=== PATIENT | female | born 1930 | race Caucasian/White ===

== ENCOUNTER 2017-08-24 13:45 | Outpatient (CLI) | payer MEDICARE, OTHER | END 2017-08-24 13:46 | disposition home or self-care (01) | LOC: BICCT 13:45 | PROVIDERS: ATTEND Family Medicine | DX: M47.892 Other spondylosis, cervical region (principal); M54.2 Cervicalgia; M81.0 Age-related osteoporosis without current pathological fracture; J92.9 Pleural plaque without asbestos; M48.02 Spinal stenosis, cervical region | CPT/HCPCS: 72125 ==

== ENCOUNTER 2018-01-18 09:43 | Outpatient (CLI) | payer MEDICARE, OTHER | END 2018-01-18 09:44 | disposition home or self-care (01) | LOC: BICRAD 09:43 | PROVIDERS: ATTEND Family Medicine | DX: R09.89 Other specified symptoms and signs involving the circulatory and respiratory systems (principal); J44.9 Chronic obstructive pulmonary disease, unspecified | CPT/HCPCS: 71046 ==

== ENCOUNTER 2018-10-05 09:29 | Outpatient (CLI) | payer MEDICARE, OTHER ==
--- NOTE | 2018-10-05 10:51 | BD ---
DEXA BONE DENSITY STUDY: History: Post-menopausal. 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 POS: [facility]
== END 2018-10-05 09:30 | disposition home or self-care (01) ==
LOC: BICMAMMO 09:29
PROVIDERS: ATTEND Family Medicine
DX: M81.0 Age-related osteoporosis without current pathological fracture (principal); M85.88 Other specified disorders of bone density and structure, other site
CPT/HCPCS: 77080

== ENCOUNTER 2018-12-23 15:16 | Outpatient (CLI) | payer MEDICARE, OTHER ==
--- NOTE | 2018-12-23 15:30 | RAD ---
FEXAM:Chest 2 views HISTORY: Left-sided pain. Findings: Heart size upper limits of normal with mitral annulus calcification. There are atherosclero tic changes of the aorta. The lungs show chronic change. The bones appear demineralized. There are ar thritic changes of the spine. IMPRESSION:Borderline heart size. No active intrathoracic disease.
== END 2018-12-23 15:17 | disposition home or self-care (01) ==
LOC: BICRAD 15:16
PROVIDERS: ATTEND Family Medicine
DX: R10.9 Unspecified abdominal pain (principal)
CPT/HCPCS: 36415; 71046; 80053; 81001; 85025

== ENCOUNTER 2018-12-28 08:31 | Outpatient (CLI) | payer MEDICARE, OTHER ==
--- NOTE | 2018-12-28 09:50 | CT ---
CT Chest W Con History: [Chest pain] Comparison: Radiograph December 23, 2018 Findings: The lungs are hyperinflated with mild centrilobular emphysema. No pneumothorax. No effusion . No focal airspace consolidation. No large suspicious pulmonary nodule. There is focal fatty eventra tion of the posterior diaphragm on the right. Large sliding hiatal hernia with approximately 30% matthew georges volume within the thoracic cavity. Mild scarring left lung base. There is a subtle focus of groundglass along the bronchus within the posterior segment right upper lo be axial image 20. The thyroid appears unremarkable aside from a small right lobe hypodensity. No aneurysmal dilatation of the aorta. Limited evaluation of the upper abdomen is unremarkable. Superior endplate compression deformities are present lower thoracic spine from T8 to T10 with endpla te invagination of disc material. No acute displaced rib fracture. Impression: 1. Mild lung hyperinflation and centrilobular emphysema. 2. Large sliding hiatal hernia with 30% of the gastric volume within the thoracic cavity. 3. Focal area of alveolitis within the posterior segment right upper lobe.
[2018-12-28] MEDS ORDERED: Iopamidol 370 76% 50 ML VIAL FS ONE (16:49)
--- NOTE | 2018-12-30 12:15 | CT ---
Exam: CT chest with contrast CT abdomen with contrast History: Chest pain Comparison: Radiograph December 23, 2018 Findings: The lungs are hyperinflated with mild centrilobular emphysema. No pneumothorax. No effusion . No focal airspace consolidation. No large suspicious pulmonary nodule. There is focal fatty eventration of the posterior diaphragm on the right. Large sliding hiatal hernia with approximately 3 0% gastric volume within the thoracic cavity. Mild scarring left lung base. There is a subtle focus of groundglass along the bronchus within the posterior segment right upper lo be axial image 20. The thyroid appears unremarkable aside from a small right lobe hypodensity. No aneurysmal dilatation of the aorta. Limited evaluation of the upper abdomen is unremarkable. Superior endplate compression deformities are present lower thoracic spine from T8 to T10 with endpla te invagination of disc material. No acute displaced rib fracture. Impression: 1. Mild lung hyperinflation and centrilobular emphysema. 2. Large sliding hiatal hernia with 30% of the gastric volume within the thoracic cavity. 3. Focal area of alveolitis within the posterior segment right upper lobe. Transcribed Date/Time: 12/30/2018 12:14 PM
== END 2018-12-28 08:32 | disposition home or self-care (01) ==
LOC: CT 08:31
PROVIDERS: ATTEND Family Medicine
DX: R10.9 Unspecified abdominal pain (principal); R09.89 Other specified symptoms and signs involving the circulatory and respiratory systems; J43.2 Centrilobular emphysema; K44.9 Diaphragmatic hernia without obstruction or gangrene; J67.9 Hypersensitivity pneumonitis due to unspecified organic dust
CPT/HCPCS: 71260; 74160

== ENCOUNTER 2019-08-26 10:17 | Outpatient (CLI) | payer MEDICARE, OTHER ==
--- NOTE | 2019-08-26 12:26 | RAD ---
LUMBAR SPINE FOUR VIEWS: HISTORY: Lumbar radicular pain. FINDINGS: Moderate degenerative changes. Scoliotic curvature of the lumbar spine with convexity to the left wit h apex at L3. Loss of disk space and hypertrophic spurring at all levels. On the lateral projection, the lumbar vertebrae maintain height. There is mild anterolisthesis at L5-S1. There is facet hypertro phy. IMPRESSION: Moderate degenerative changes of the lumbar spine with scoliotic curvature with convexity to the left . POS: [facility]
--- NOTE | 2019-08-26 13:19 | MRI ---
MRI LUMBAR SPINE: INDICATIONS: Lumbar pain with lumbar radicular pain. CORRELATION: Plain films from 08/26/2019. FINDINGS: There is a scoliotic curvature of the lumbar spine with convexity to the left, at the L2-L3 level. De generative disk changes with loss of disk space at all levels. In the sagittal planes, the lumbar vertebrae maintain height. There is mild anterolisthesis at L5-S1, as noted on the plain film. Slight posterolisthesis on MRI noted at L1-L2 and at L2-L3. Slight anter olisthesis at L3-L4 is noted. At the L1-L2 level there is a broad-based disk bulge flattening the thecal sac. Facet hypertrophy. Mi ld central canal stenosis. Bilateral foraminal stenosis is noted. L2-L3: Diffuse disk bulge combined with facet hypertrophy results in mild to moderate central canal s tenosis. Bilateral foraminal narrowing due to disk bulge and hypertrophic change. L3-L4: Diffuse disk bulge flattens the thecal sac. Facet hypertrophy. Mild to moderate central canal stenosis. Foraminal stenosis, more severe on the right. L4-L5: Broad-based disk bulge is more prominent. Facet hypertrophy is prominent. Severe central canal stenosis. Severe left foraminal stenosis and mild to moderate right foraminal stenosis. L5-S1: Anterolisthesis. Moderate central canal stenosis. Left foraminal narrowing due to disk bulge a nd facet hypertrophy. IMPRESSION: Scoliotic curvature with degenerative disk changes at all levels, as described above. Degrees of cent ral canal and foraminal stenosis as noted above. POS: [facility]
== END 2019-08-26 10:18 | disposition home or self-care (01) ==
LOC: BICMRI 10:17
PROVIDERS: ATTEND Nurse Practitioner Family
DX: M51.16 Intervertebral disc disorders with radiculopathy, lumbar region (principal); M48.061 Spinal stenosis, lumbar region without neurogenic claudication; M47.26 Other spondylosis with radiculopathy, lumbar region; M48.07 Spinal stenosis, lumbosacral region; M41.9 Scoliosis, unspecified
CPT/HCPCS: 72120; 72148